=== PATIENT | female | born 1945 | race Caucasian/White ===

== ENCOUNTER 2019-05-30 17:05 | Emergency (ER) | payer MEDICARE, OTHER ==
[2019-05-30 18:53] LABS: ADD MAN DIFF? NO
[2019-05-30 18:55] LABS: BASOPHIL # 0.1 10^3/ul (0.0-0.1); BASOPHILS % 0.6 % (0.0-2.0); EOSINOPHILS # 0.2 10^3/ul (0.0-0.5); EOSINOPHILS % 2.8 % (0.0-7.0); HEMATOCRIT 35.8 % (37.0-47.0); HEMOGLOBIN 11.9 g/dl (12.0-16.0); LYMPHOCYTES # 2.1 10^3/ul (0.8-2.9); LYMPHOCYTES % 26.1 % (15.0-51.0); MEAN CORPUSCULAR HEMOGLOBIN 28.2 pg (29.0-33.0); MEAN CORPUSCULAR HGB CONC 33.2 g/dl (32.0-37.0); MEAN CORPUSCULAR VOLUME 84.8 fl (82.0-101.0); MEAN PLATELET VOLUME 10.1 fl (7.4-10.4); MONOCYTE # 0.8 10^3/ul (0.3-0.9); MONOCYTES % 9.2 % (0.0-11.0); NEUTROPHILS % 60.9 % (39.0-77.0); PLATELET COUNT 304 10^3/UL (140-415); RED BLOOD COUNT 4.22 10^6/ul (4.20-5.40); RED CELL DISTRIBUTION WIDTH 13.3 % (11.5-14.5)
[2019-05-30 18:55] LABS: WHITE BLOOD COUNT 8.1 10^3/ul (4.8-10.8)
[2019-05-30 20:15] LABS: ALANINE AMINOTRANSFERASE 18 IU/L (13-69); ALBUMIN 4.6 g/dl (3.3-4.9); ALBUMIN/GLOBULIN RATIO 1.21; ALKALINE PHOSPHATASE 117 IU/L (42-121); ANION GAP 12 (5-13); ASPARTATE AMINO TRANSFERASE 24 IU/L (15-46); BILIRUBIN,INDIRECT 0.5 mg/dl (0-1.1); BILIRUBIN,TOTAL 0.5 mg/dl (0.2-1.3); BLOOD UREA NITROGEN 30 mg/dl (7-20); CALCIUM 10.1 mg/dl (8.4-10.2); CARBON DIOXIDE 26 mmol/L (21-31); CHLORIDE 103 mmol/L (97-110); CREATININE 1.13 mg/dl (0.44-1.00); GLUCOSE 177 mg/dl (70-220); POTASSIUM 4.6 mmol/L (3.5-5.1); SODIUM 141 mmol/L (135-144); TOTAL PROTEIN 8.4 g/dl (6.1-8.1)
[2019-05-30 20:23] LABS: B-TYPE NATRIURETIC PEPTIDE 466 PG/ML (0-125)
== END 2019-05-30 21:17 | disposition home or self-care (01) ==
LOC: FTE 17:05
DX: I87.2 Venous insufficiency (chronic) (peripheral) (principal); I10 Essential (primary) hypertension; I25.2 Old myocardial infarction; E11.9 Type 2 diabetes mellitus without complications; Z86.73 Personal history of transient ischemic attack (TIA), and cerebral infarction without residual deficits; Z98.61 Coronary angioplasty status
CPT/HCPCS: 36415; 80053; 83880; 85025; 93971; 99284-25

== ENCOUNTER 2019-06-13 20:27 | Observation (INO) | payer MEDICARE, OTHER ==
[2019-06-13 21:59] LABS: ADD MAN DIFF? NO
[2019-06-13 22:00] LABS: URINE BLOOD (Dip) POC Negative (NEGATIVE); URINE GLUCOSE (Dip) POC Negative (NEGATIVE); URINE KETONES (Dip) POC Negative (NEGATIVE); URINE LEUKOCYTE EST (Dip) POC Negative (NEGATIVE); URINE NITRITE (Dip) POC Negative (NEGATIVE); URINE TOTAL PROTEIN POC Negative (NEGATIVE)
[2019-06-13 22:07] LABS: BASOPHILS % 0.4 % (0.0-2.0); EOSINOPHILS # 0.2 10^3/ul (0.0-0.5); EOSINOPHILS % 1.4 % (0.0-7.0); HEMOGLOBIN 11.8 g/dl (12.0-16.0); LYMPHOCYTES # 2.4 10^3/ul (0.8-2.9); LYMPHOCYTES % 21.9 % (15.0-51.0); MEAN CORPUSCULAR HGB CONC 32.8 g/dl (32.0-37.0); MEAN CORPUSCULAR VOLUME 85.5 fl (82.0-101.0); MEAN PLATELET VOLUME 9.7 fl (7.4-10.4); MONOCYTE # 0.9 10^3/ul (0.3-0.9); MONOCYTES % 7.9 % (0.0-11.0); NEUTROPHIL # 7.4 10^3/ul (1.6-7.5); NEUTROPHILS % 67.9 % (39.0-77.0); PLATELET COUNT 311 10^3/UL (140-415); RED BLOOD COUNT 4.21 10^6/ul (4.20-5.40); RED CELL DISTRIBUTION WIDTH 13.2 % (11.5-14.5)
[2019-06-13 22:07] LABS: WHITE BLOOD COUNT 10.9 10^3/ul (4.8-10.8)
[2019-06-13 22:12] LABS: ADD UMIC NO; UR ASCORBIC ACID NEGATIVE (NEGATIVE); UR BILIRUBIN (Dip) NEGATIVE (NEGATIVE); UR BLOOD (Dip) NEGATIVE (NEGATIVE); UR CLARITY CLEAR (CLEAR); UR COLOR STRAW (YELLOW); UR GLUCOSE (Dip) NEGATIVE (NEGATIVE); UR KETONES (Dip) NEGATIVE (NEGATIVE); UR LEUKOCYTE ESTERASE (Dip) NEGATIVE Leu/ul (NEGATIVE); UR NITRITE (Dip) NEGATIVE (NEGATIVE); UR SPECIFIC GRAVITY (Dip) 1.009 (1.003-1.030); UR TOTAL PROTEIN (Dip) NEGATIVE (NEGATIVE); UR UROBILINOGEN (Dip) NEGATIVE (NEGATIVE)
[2019-06-13] MEDS: SOD CHLORIDE 0.9% 500 ML IV (22:16)
[2019-06-13 22:24] LABS: ALANINE AMINOTRANSFERASE 17 IU/L (13-69); ALBUMIN 4.5 g/dl (3.3-4.9); ALBUMIN/GLOBULIN RATIO 1.21; ALKALINE PHOSPHATASE 108 IU/L (42-121); ANION GAP 14 (5-13); ASPARTATE AMINO TRANSFERASE 27 IU/L (15-46); BILIRUBIN,INDIRECT 0.4 mg/dl (0-1.1); BILIRUBIN,TOTAL 0.4 mg/dl (0.2-1.3); BLOOD UREA NITROGEN 24 mg/dl (7-20); CALCIUM 9.9 mg/dl (8.4-10.2); CARBON DIOXIDE 26 mmol/L (21-31); CHLORIDE 101 mmol/L (97-110); CREATININE 1.23 mg/dl (0.44-1.00); GLUCOSE 222 mg/dl (70-220); LIPASE 91 U/L (23-300); POTASSIUM 4.1 mmol/L (3.5-5.1); SODIUM 141 mmol/L (135-144); TOTAL PROTEIN 8.2 g/dl (6.1-8.1)
[2019-06-13 22:36] LABS: TROPONIN-I < 0.012 ng/ml (0.000-0.120)
[2019-06-13] MEDS ORDERED: MAGNESIUM HYDROXIDE 30ML CUP PO (23:30)
[2019-06-13] MEDS ORDERED: NACL 0.9% 3 ML SYG IV (23:30)
[2019-06-13] MEDS ORDERED: ALBUTEROL/IPRATROPIUM (NEB) 3 ML AMP HHN (23:30)
[2019-06-13] MEDS ORDERED: ONDANSETRON 4 MG INJ IV (23:30)
[2019-06-14] MEDS: ACETAMINOPHEN 325 MG TAB PO (00:18)
[2019-06-14 06:23] LABS: ADD MAN DIFF? NO
[2019-06-14 07:01] LABS: ALANINE AMINOTRANSFERASE 15 IU/L (13-69); ALBUMIN 3.9 g/dl (3.3-4.9); ALBUMIN/GLOBULIN RATIO 1.18; ALKALINE PHOSPHATASE 76 IU/L (42-121); ANION GAP 10 (5-13); ASPARTATE AMINO TRANSFERASE 25 IU/L (15-46); BILIRUBIN,INDIRECT 0.5 mg/dl (0-1.1); BILIRUBIN,TOTAL 0.5 mg/dl (0.2-1.3); BLOOD UREA NITROGEN 21 mg/dl (7-20); CALCIUM 9.6 mg/dl (8.4-10.2); CARBON DIOXIDE 26 mmol/L (21-31); CHLORIDE 106 mmol/L (97-110); CHOL/HDL RATIO 3.2 RATIO; CHOLESTEROL 122 mg/dl (100-200); CREATINE KINASE 186 IU/L (23-200); CREATININE 1.08 mg/dl (0.44-1.00); HDL CHOLESTEROL 37 mg/dl (33-92); LDL CHOLESTEROL,CALCULATED 67 mg/dl; MAGNESIUM 1.5 mg/dl (1.7-2.5); POTASSIUM 3.8 mmol/L (3.5-5.1); SODIUM 142 mmol/L (135-144); TOTAL PROTEIN 7.2 g/dl (6.1-8.1); TRIGLYCERIDES 92 mg/dl (0-149)
[2019-06-14 07:06] LABS: GLUCOSE 46 mg/dl (70-220)
[2019-06-14 07:07] LABS: CK INDEX 0.7; CK-MB 1.25 ng/ml (0.0-2.4); TROPONIN-I < 0.012 ng/ml (0.000-0.120)
[2019-06-14 07:21] LABS: WHITE BLOOD COUNT 8.3 10^3/ul (4.8-10.8)
[2019-06-14 07:21] LABS: BASOPHIL # 0.1 10^3/ul (0.0-0.1); BASOPHILS % 0.6 % (0.0-2.0); EOSINOPHILS # 0.2 10^3/ul (0.0-0.5); EOSINOPHILS % 1.8 % (0.0-7.0); HEMATOCRIT 33.2 % (37.0-47.0); HEMOGLOBIN 10.9 g/dl (12.0-16.0); LYMPHOCYTES # 2.3 10^3/ul (0.8-2.9); LYMPHOCYTES % 28.1 % (15.0-51.0); MEAN CORPUSCULAR HEMOGLOBIN 28.2 pg (29.0-33.0); MEAN CORPUSCULAR HGB CONC 32.8 g/dl (32.0-37.0); MEAN CORPUSCULAR VOLUME 85.8 fl (82.0-101.0); MEAN PLATELET VOLUME 10.9 fl (7.4-10.4); MONOCYTE # 0.9 10^3/ul (0.3-0.9); MONOCYTES % 10.3 % (0.0-11.0); NEUTROPHIL # 4.9 10^3/ul (1.6-7.5); PLATELET COUNT 282 10^3/UL (140-415); RED BLOOD COUNT 3.87 10^6/ul (4.20-5.40); RED CELL DISTRIBUTION WIDTH 13.5 % (11.5-14.5)
[2019-06-14 07:23] LABS: POSITIVE DIFF @See below
[2019-06-14 07:45] LABS: HEMOGLOBIN A1C 7.1 % (0-5.9)
[2019-06-14] MEDS ORDERED: ASPIRIN 81 MG TAB PO (09:00)
[2019-06-14] MEDS: TRIAMCINOLONE ACET 0.025% 60 ML LOT TOP ×3 (09:00→21:09)
[2019-06-14] MEDS: HEPARIN 5,000 UNIT/1 ML VIAL SC ×2 (09:44→21:03)
[2019-06-14] MEDS: ASPIRIN (EC) 81 MG TAB PO (09:45)
[2019-06-14] MEDS ORDERED: GLUCOSE GEL 15 GRAM TUBE BUCCAL (11:00)
[2019-06-14] MEDS ORDERED: GLUCAGON 1 MG INJ IM (11:00)
[2019-06-14] MEDS ORDERED: DEXTROSE 50% 50 ML SYRINGE IV ×2 (11:00)
[2019-06-14] MEDS ORDERED: hydrALAzine 20 MG INJ IV (11:00)
[2019-06-14] MEDS ORDERED: GLUCOSE GEL 15 GRAM TUBE PO ×2 (11:00)
[2019-06-14] MEDS: SOD CHLORIDE 0.45% 1,000 ML IV (11:34)
[2019-06-14] MEDS: MAGNESIUM SULFATE 2 GM/50 ML 50 ML IVPB (11:38)
[2019-06-14] MEDS: INSULIN ASPART [NOVOLOG] 3 ML PEN SC ×3 (11:50→21:00)
[2019-06-14] MEDS: CEFTRIAXONE 1 GM/50 ML (PMX) 50 ML IVPB (14:58)
[2019-06-14] MEDS: LEVETIRACETAM 500 MG TAB PO (20:52)
[2019-06-14] MEDS: ATORVASTATIN 40 MG TAB PO (20:53)
[2019-06-14] MEDS: ATORVASTATIN 20 MG TAB PO (21:00)
[2019-06-14] MEDS: INSULIN GLARGINE [LANTus] (100 UNITS/ML) SYG SC (21:02)
[2019-06-14] MEDS: HYDROCODONE/APAP (5/325) TAB PO (21:09)
[2019-06-15] MEDS: ACCU-CHEK XX (02:00)
[2019-06-15] MEDS: SOD CHLORIDE 0.45% 1,000 ML IV ×2 (03:58→13:40)
[2019-06-15 06:11] LABS: ADD MAN DIFF? NO
[2019-06-15 06:24] LABS: BASOPHILS % 0.7 % (0.0-2.0); EOSINOPHILS # 0.2 10^3/ul (0.0-0.5); EOSINOPHILS % 3.4 % (0.0-7.0); HEMATOCRIT 32.5 % (37.0-47.0); HEMOGLOBIN 10.8 g/dl (12.0-16.0); LYMPHOCYTES # 1.6 10^3/ul (0.8-2.9); LYMPHOCYTES % 27.4 % (15.0-51.0); MEAN CORPUSCULAR HEMOGLOBIN 28.3 pg (29.0-33.0); MEAN CORPUSCULAR HGB CONC 33.2 g/dl (32.0-37.0); MEAN CORPUSCULAR VOLUME 85.3 fl (82.0-101.0); MEAN PLATELET VOLUME 10.1 fl (7.4-10.4); MONOCYTE # 0.7 10^3/ul (0.3-0.9); MONOCYTES % 11.3 % (0.0-11.0); NEUTROPHIL # 3.4 10^3/ul (1.6-7.5); NEUTROPHILS % 56.9 % (39.0-77.0); PLATELET COUNT 277 10^3/UL (140-415); RED BLOOD COUNT 3.81 10^6/ul (4.20-5.40); RED CELL DISTRIBUTION WIDTH 13.2 % (11.5-14.5)
[2019-06-15 06:24] LABS: WHITE BLOOD COUNT 5.9 10^3/ul (4.8-10.8)
[2019-06-15 06:45] LABS: MAGNESIUM 1.8 mg/dl (1.7-2.5)
[2019-06-15 06:51] LABS: ANION GAP 7 (5-13); BLOOD UREA NITROGEN 18 mg/dl (7-20); CARBON DIOXIDE 28 mmol/L (21-31); CHLORIDE 107 mmol/L (97-110); CREATININE 0.88 mg/dl (0.44-1.00); GLUCOSE 145 mg/dl (70-220); POTASSIUM 3.9 mmol/L (3.5-5.1); SODIUM 142 mmol/L (135-144)
[2019-06-15 06:52] LABS: CALCIUM 9.2 mg/dl (8.4-10.2)
[2019-06-15] MEDS: INSULIN ASPART [NOVOLOG] 3 ML PEN SC ×4 (07:55→20:49)
[2019-06-15] MEDS: LEVETIRACETAM 500 MG TAB PO ×2 (08:31→20:37)
[2019-06-15] MEDS: LORATADINE 10 MG TAB PO (08:31)
[2019-06-15] MEDS: ASPIRIN (EC) 81 MG TAB PO (08:31)
[2019-06-15] MEDS: TRIAMCINOLONE ACET 0.025% 60 ML LOT TOP ×3 (08:35→21:00)
[2019-06-15] MEDS: HEPARIN 5,000 UNIT/1 ML VIAL SC (08:54)
[2019-06-15] MEDS: INSULIN GLARGINE [LANTus] (100 UNITS/ML) SYG SC ×2 (08:54→20:49)
[2019-06-15] MEDS: AMLODIPINE 10 MG TAB PO (11:51)
[2019-06-15] MEDS: FUROSEMIDE 20 MG TAB PO (11:52)
[2019-06-15] MEDS: LOSARTAN 25 MG TAB PO (11:52)
[2019-06-15] MEDS: METOPROLOL 25 MG TAB PO ×2 (11:53→20:37)
[2019-06-15] MEDS: SOD CHLORIDE 0.9% 100 ML (15:59)
[2019-06-15] MEDS: IOHEXOL 100 ML (15:59)
[2019-06-15] MEDS: RIVAROXABAN 20 MG TABLET PO (17:20)
[2019-06-15] MEDS ORDERED: metFORMIN 850 MG TAB PO (17:55)
[2019-06-15] MEDS: DONEPEZIL 10 MG TAB PO (20:38)
[2019-06-15] MEDS: ATORVASTATIN 40 MG TAB PO (20:38)
[2019-06-15] MEDS: ATORVASTATIN 20 MG TAB PO (21:00)
[2019-06-16] MEDS: SOD CHLORIDE 0.45% 1,000 ML IV ×2 (01:07→15:54)
[2019-06-16] MEDS: ACCU-CHEK XX (02:22)
[2019-06-16] MEDS: FUROSEMIDE 20 MG TAB PO (06:09)
[2019-06-16] MEDS: LEVOTHYROXINE 125 MCG TAB PO (06:09)
[2019-06-16] MEDS: LOSARTAN 25 MG TAB PO (08:11)
[2019-06-16] MEDS: LORATADINE 10 MG TAB PO (08:11)
[2019-06-16] MEDS: LEVETIRACETAM 500 MG TAB PO (08:11)
[2019-06-16] MEDS: ASPIRIN (EC) 81 MG TAB PO (08:11)
[2019-06-16] MEDS: AMLODIPINE 10 MG TAB PO (08:11)
[2019-06-16] MEDS: METOPROLOL 25 MG TAB PO (08:12)
[2019-06-16] MEDS: INSULIN ASPART [NOVOLOG] 3 ML PEN SC ×2 (08:46→12:15)
[2019-06-16] MEDS: INSULIN GLARGINE [LANTus] (100 UNITS/ML) SYG SC (08:47)
[2019-06-16] MEDS: TRIAMCINOLONE ACET 0.025% 60 ML LOT TOP ×2 (09:00→12:39)
[2019-06-16] MEDS: TRIMETHOPRIM/SULFAMETHOX (DS) TAB PO (10:43)
== END 2019-06-16 17:19 | disposition home or self-care (01) ==
LOC: TEL 23:47 → E/R 20:27 → TEL 22:22
DX: R47.81 Slurred speech (principal); R41.0 Disorientation, unspecified; I69.351 Hemiplegia and hemiparesis following cerebral infarction affecting right dominant side; I25.10 Atherosclerotic heart disease of native coronary artery without angina pectoris; Z95.5 Presence of coronary angioplasty implant and graft; I10 Essential (primary) hypertension; E11.9 Type 2 diabetes mellitus without complications; I25.2 Old myocardial infarction; I65.21 Occlusion and stenosis of right carotid artery; Z79.4 Long term (current) use of insulin; Z79.01 Long term (current) use of anticoagulants
CPT/HCPCS: 36415; 70450; 70498; 70551; 71045; 80048; 80053; 80061; 81003; 82550; 82553; 82962; 83036; 83690; 83735; 84100; 84443; 84484; 85025; 87086; 92523; 92610; 93005; 93306; 93880; 97162; 99285-25